=== PATIENT | male | born 1940 | race Caucasian/White ===

== ENCOUNTER 2020-12-02 21:08 | Inpatient (IN) | payer MEDICARE, OTHER ==
[2020-12-02] MEDS ORDERED: Sodium Chloride 0.9% 10 ML Syringe FLUSH PRN (21:20)
[2020-12-02] MEDS ORDERED: Sodium Chloride 0.9% 1,000 ML IV ONE (21:20)
--- NOTE | 2020-12-02 21:44 | EDM.PDOC ---
ED HPI GENERAL MEDICAL PROBLEM - General Chief Complaint: General Stated Complaint: [facility] Time Seen by Provider: 12/02/20 21:15 Source of Information: Reports: Patient, EMS History Limitations: Reports: Altered Mental Status - History of Present Illness INITIAL COMMENTS - FREE TEXT/NARRATIVE: The patient presents by [facility] for fever, generalized weakness and cough. This started yesterday. He also is confused. He could not get off of the toilet so his called 911. He has no temp now but he did take something for a fever. He has a slight cough. He feels short of breath and his oxygen saturations were in the 80s. He has no chest pain, abdominal pain, nausea or vomiting. He had a rapid heart rate when EMS arrived. He is at 109 now. He was given about a 350ml NS bolus. He did get the [employer] [place] COVID 19 immunization. He has no pain with urination. He is confused to place and time. He has a history of diabetes, DVT/PE, and hypertension. Onset: Gradual Duration: Day(s): (2) Severity: Moderate Improves with: Reports: None Worsens with: Reports: None Associated Symptoms: Reports: Cough, Fever/Chills. Denies: Chest Pain, Headaches, Nausea/Vomiting, Shortness of Breath Treatments [employer]: Reports: Isotonic Fluid, IV/IO, Oxygen, See EMS Report, Other (see below) Other Treatments [employer] SOFTWARE [employer]ER: does not recall what he took at home for fever; pt is on coumadin - Related Data Allergies Allergy/AdvReac Type Severity Reaction Status Date / Time No Known Allergies Allergy Verified 10/27/13 11:09 Home Meds: Home Meds Bicalutamide [Casodex] 50 mg PO DAILY 12/02/20 [History] Furosemide [Lasix] 20 mg PO DAILY PRN 12/02/20 [History] Metoprolol Tartrate 50 mg PO BID 12/02/20 [History] Omeprazole 20 mg PO DAILY 12/02/20 [History] Oxybutynin 5 mg PO BEDTIME 12/02/20 [History] Warfarin [Coumadin] 3 mg PO MOWEFR 12/02/20 [History] Warfarin [Coumadin] 4.5 mg PO SUTUTHSA 12/02/20 [History] metFORMIN HCl [Metformin HCl] 1,000 mg PO BID 12/02/20 [History] Past Medical History Cardiovascular History: Reports: Blood Clots/VTE/DVT, Heart Failure, Hypertension Gastrointestinal History: Reports: GERD Endocrine/Metabolic History: Reports: Diabetes, Type II Social & Family History - Tobacco Use Tobacco Use Status *Q: Former Tobacco User Used Tobacco, but Quit: Yes Month/Year Tobacco Last Used: 20 yrs - Caffeine Use Caffeine Use: Reports: Soda - Recreational Drug Use Recreational Drug Use: No ED ROS GENERAL - Review of Systems Review Of Systems: See Below Constitutional: Reports: Fever, Chills, Malaise, Weakness, Fatigue HEENT: Reports: No Symptoms Respiratory: Reports: Shortness of Breath, Cough Cardiovascular: Reports: No Symptoms Endocrine: Reports: No Symptoms GI/Abdominal: Reports: No Symptoms : Reports: No Symptoms Musculoskeletal: Reports: No Symptoms Skin: Reports: No Symptoms Neurological: Denies: Headache ED EXAM, GENERAL - Physical Exam Exam: See Below Exam Limited By: Altered Mental Status (slightly confused) General Appearance: Alert, No Apparent Distress Ears: Normal External Exam Nose: Normal Inspection Head: Atraumatic, Normocephalic Neck: Normal Inspection Respiratory/Chest: No Respiratory Distress, Decreased Breath Sounds Cardiovascular: No Edema, No Murmur, Tachycardia GI/Abdominal: Soft, Non-Tender, No Organomegaly, No Mass Back Exam: Normal Inspection Extremities: Normal Inspection Course - Vital Signs Last Recorded V/S: Last Vital Signs Temp 97.8 F 12/02/20 21:21 Pulse 116 H 12/02/20 21:21 Resp 34 H 12/02/20 21:21 BP 127/93 H 12/02/20 21:37 Pulse Ox 86 L 12/02/20 21:21 - Orders/Labs/Meds Orders: Active Orders 24 hr Category Date Time Status Blood Pressure Mgt: Sepsis [RC] Q15MX2 Care 12/02/20 21:21 Active Chest 1V Frontal [CR] Stat Exams 12/02/20 21:20 Taken Chest wo Cont [CT] Stat Exams 12/02/20 22:24 Stop Req CULTURE BLOOD [BC] Stat Lab 12/02/20 21:30 Received CULTURE BLOOD [BC] Stat Lab 12/02/20 21:39 Received REFLEX LACTIC ACID YES OR NO [CHEM] Routine Lab 12/02/20 22:30 Received Sodium Chloride 0.9% [Normal Saline] 1,000 ml Med 12/02/20 21:20 Active IV BOLUS Sodium Chloride 0.9% [Saline Flush] Med 12/02/20 21:20 Active 10 ml FLUSH ASDIRECTED PRN Blood Culture x2 Reflex Set [OM.PC] Stat Ot 12/02/20 21:21 Ordered Saline Lock Insert [OM.PC] Stat Ot 12/02/20 21:21 Ordered Severe Sepsis Onset Time [OM.PC] Stat Ot 12/02/20 22:39 Ordered Medication Orders Sodium Chloride (Normal Saline) 1,000 mls @ 125 mls/hr IV BOLUS ONE; Protocol Stop: 12/03/20 05:19 Last Admin: 12/02/20 21:31 Dose: 125 mls/hr Documented by: DINORAH Sodium Chloride (Sodium Chloride 0.9% 10 Ml Syringe) 10 ml FLUSH ASDIRECTED PRN PRN Reason: Keep Vein Open Last Admin: 12/02/20 21:33 Dose: 10 ml Documented by: LOUISE Labs: Laboratory Tests 12/02/20 12/02/20 12/02/20 Range/Units 21:12 21:39 21:39 WBC 11.40 H (4.23-9.07) K/mm3 RBC 4.74 (4.63-6.08) M/mm3 Hgb 13.0 L (13.7-17.5) gm/dl Hct 41.5 (40.1-51.0) % MCV 87.6 (79.0-92.2) fl MCH 27.4 (25.7-32.2) pg MCHC 31.3 L (32.2-35.5) g/dl RDW Std Deviation 42.8 (35.1-43.9) fL Plt Count 140 L (163-337) K/mm3 MPV 10.8 (9.4-12.3) fl Neutrophils % (Manual) 87 H (40-60) % Band Neutrophils % 5 (0-10) % Lymphocytes % (Manual) 7 L (20-40) % Atypical Lymphs % 0 % Monocytes % (Manual) 1 L (2-10) % Eosinophils % (Manual) 0 L (0.8-7.0) % Basophils % (Manual) 0 L (0.2-1.2) Platelet Estimate Adequate RBC Morph Comment Normal PT 30.3 H (9.7-12.0) SECONDS INR 2.89 Sodium (136-145) mEq/L Potassium (3.5-5.1) mEq/L Chloride (98-107) mEq/L Carbon Dioxide (21-32) mEq/L Anion Gap (5-15) BUN (7-18) mg/dL Creatinine (0.7-1.3) mg/dL Est Cr Clr Drug Dosing mL/min Estimated GFR (MDRD) (>60) mL/min BUN/Creatinine Ratio (14-18) Glucose (70-99) mg/dL Lactic Acid (0.4-2.0) mmol/L Calcium (8.5-10.1) mg/dL Total Bilirubin (0.2-1.0) mg/dL AST (15-37) U/L ALT (16-63) U/L Alkaline Phosphatase (46-116) U/L C-Reactive Protein (<1.0) mg/dL Total Protein (6.4-8.2) g/dl Albumin (3.4-5.0) g/dl Globulin gm/dL Albumin/Globulin Ratio (1-2) Urine Color (Yellow) Urine Appearance (Clear) Urine pH (5.0-8.0) Ur Specific [place] (1.005-1.030) Urine Protein (Negative) Urine Glucose (UA) (Negative) Urine Ketones (Negative) Urine Occult Blood (Negative) Urine Nitrite (Negative) Urine Bilirubin (Negative) Urine Urobilinogen (0.2-1.0) Ur Leukocyte Esterase (Negative) SARS-CoV-2 RNA (PHAN) Negative (NEGATIVE) 12/02/20 12/02/20 12/02/20 Range/Units 21:39 21:39 21:55 WBC (4.23-9.07) K/mm3 RBC (4.63-6.08) M/mm3 Hgb (13.7-17.5) gm/dl Hct (40.1-51.0) % MCV (79.0-92.2) fl MCH (25.7-32.2) pg MCHC (32.2-35.5) g/dl RDW Std Deviation (35.1-43.9) fL Plt Count (163-337) K/mm3 MPV (9.4-12.3) fl Neutrophils % (Manual) (40-60) % Band Neutrophils % (0-10) % Lymphocytes % (Manual) (20-40) % Atypical Lymphs % % Monocytes % (Manual) (2-10) % Eosinophils % (Manual) (0.8-7.0) % Basophils % (Manual) (0.2-1.2) Platelet Estimate RBC Morph Comment PT (9.7-12.0) SECONDS INR Sodium 138 (136-145) mEq/L Potassium 3.7 (3.5-5.1) mEq/L Chloride 100 (98-107) mEq/L Carbon Dioxide 27 (21-32) mEq/L Anion Gap 14.7 (5-15) BUN 13 (7-18) mg/dL Creatinine 1.2 (0.7-1.3) mg/dL Est Cr Clr Drug Dosing 49.85 mL/min Estimated GFR (MDRD) 58 (>60) mL/min BUN/Creatinine Ratio 10.8 L (14-18) Glucose 250 H (70-99) mg/dL Lactic Acid 2.2 H* (0.4-2.0) mmol/L Calcium 8.9 (8.5-10.1) mg/dL Total Bilirubin 1.7 H (0.2-1.0) mg/dL AST 103 H (15-37) U/L ALT 99 H (16-63) U/L Alkaline Phosphatase 201 H (46-116) U/L C-Reactive Protein 4.2 H* (<1.0) mg/dL Total Protein 7.1 (6.4-8.2) g/dl Albumin 3.5 (3.4-5.0) g/dl Globulin 3.6 gm/dL Albumin/Globulin Ratio 1.0 (1-2) Urine Color Yellow (Yellow) Urine Appearance Slt cloudy H (Clear) Urine pH 5.5 (5.0-8.0) Ur Specific [place] 1.025 (1.005-1.030) Urine Protein Negative (Negative) Urine Glucose (UA) Negative (Negative) Urine Ketones 3+ H (Negative) Urine Occult Blood Negative (Negative) Urine Nitrite Negative (Negative) Urine Bilirubin Negative (Negative) Urine Urobilinogen 0.2 (0.2-1.0) Ur Leukocyte Esterase Negative (Negative) SARS-CoV-2 RNA (PHAN) (NEGATIVE) Meds: Medications Generic Name Dose Route Start Last Admin Trade Name Vane PRN Reason Stop Dose Admin Sodium Chloride 1,000 mls @ 125 mls/hr 12/02/20 21:20 12/02/20 21:31 Normal Saline IV 12/03/20 05:19 125 mls/hr BOLUS ONE Administration Protocol Sodium Chloride 10 ml 12/02/20 21:20 12/02/20 21:33 Sodium Chloride 0.9% 10 Ml Syringe FLUSH 10 ml ASDIRECTED PRN Administration Keep Vein Open Discontinued Medications Generic Name Dose Route Start Last Admin Trade Name Freq PRN Reason Stop Dose Admin Ceftriaxone Sodium 2 gm/ 100 mls @ 200 mls/hr 12/02/20 22:14 12/02/20 22:35 Sodium Chloride IV 12/02/20 22:43 200 mls/hr ONETIME ONE Administration - Re-Assessments/Exams Free Text/Narrative Re-Assessment/Exam: 12/02/20 21:46 I ordered oxygen, IV NS at 125mL/hr, CXR, labs, blood cultures, lactic acid and COVID 19. 12/02/20 22:45 His CXR shows a RML infiltrate. I have ordered rocephin 2 grams IV. His WBC was elevated at 11.4. His Hgb was low at 13. His INR was elevated at 2.89 but he is on coumadin for DVT/PE. Lactic acid is elevated at 2.2. His glucose is elevated at 250. His total bili is elevated at 1.7. His AST is elevated at 103. His ALT is elevated at 99. His alk phos is elevated at 201. His CRP is elevated at 4.2. He has 2 SIRS criteria of the tachycardia and tachypnia. He has a RML infiltrate. He has sepsis. His lactic acid is greater then 2 so he is in severe sepsis. His BP is good and his lactic is not over 4 so he does not require a 30mL/kg fluid bolus. He is getting fluids and antibiotics. He is hypoxic and on oxygen. I feel he needs to be admitted. I called Dr Arce and he agreed to the admission. Departure - Departure Time of Disposition: 22:50 Disposition: Admitted As Inpatient 64 Condition: Serious Clinical Impression: Hypoxia Pneumonia Qualifiers: Pneumonia type: due to unspecified organism Laterality: right Lung location: middle lobe of lung Qualified Code(s): J18.9 - Pneumonia, unspecified organism Sepsis Qualifiers: Sepsis type: sepsis due to unspecified organism Sepsis acute organ dysfunction status: unspecified Qualified Code(s): A41.9 - Sepsis, unspecified organism - Discharge Information Referrals: Poli Johnson MD [Primary Care Provider] - Forms: ED Department Discharge Sepsis Event Note (ED) - Evaluation Sepsis Screening Result: No Definite Risk - Focused Exam Vital Signs: Vital Signs Temp Pulse Resp BP Pulse Ox 12/02/20 21:37 127/93 H 12/02/20 21:21 97.8 F 116 H 34 H 129/63 86 L - My Orders Last 24 Hours: My Active Orders 12/02/20 21:20 Chest 1V Frontal [CR] Stat Sodium Chloride 0.9% [Normal Saline] 1,000 ml IV BOLUS Sodium Chloride 0.9% [Saline Flush] 10 ml FLUSH ASDIRECTED PRN 12/02/20 21:21 Blood Pressure Mgt: Sepsis [RC] Q15MX2 Blood Culture x2 Reflex Set [OM.PC] Stat Saline Lock Insert [OM.PC] Stat 12/02/20 21:30 CULTURE BLOOD [BC] Stat 12/02/20 21:39 CULTURE BLOOD [BC] Stat 12/02/20 22:24 Chest wo Cont [CT] Stat 12/02/20 22:30 REFLEX LACTIC ACID YES OR NO [CHEM] Routine 12/02/20 22:39 Severe Sepsis Onset Time [OM.PC] Stat - Assessment/Plan Last 24 Hours: My Active Orders 12/02/20 21:20 Chest 1V Frontal [CR] Stat Sodium Chloride 0.9% [Normal Saline] 1,000 ml IV BOLUS Sodium Chloride 0.9% [Saline Flush] 10 ml FLUSH ASDIRECTED PRN 12/02/20 21:21 Blood Pressure Mgt: Sepsis [RC] Q15MX2 Blood Culture x2 Reflex Set [OM.PC] Stat Saline Lock Insert [OM.PC] Stat 12/02/20 21:30 CULTURE BLOOD [BC] Stat 12/02/20 21:39 CULTURE BLOOD [BC] Stat 12/02/20 22:24 Chest wo Cont [CT] Stat 12/02/20 22:30 REFLEX LACTIC ACID YES OR NO [CHEM] Routine 12/02/20 22:39 Severe Sepsis Onset Time [OM.PC] Stat
[2020-12-02] MEDS ORDERED: cefTRIAXone 2 GM in Sodium Chloride 0.9% 100 ML IV ONE (22:14)
[2020-12-03] MEDS ORDERED: Acetaminophen 325 MG Tab PO PRN (00:58)
[2020-12-03] MEDS ORDERED: Ondansetron 4 MG/2 ML SDV IVPUSH PRN (00:59)
[2020-12-03] MEDS: Sodium Chloride 0.9% 1,000 ML IV SCH ×2 (06:39→15:07)
--- NOTE | 2020-12-03 06:54 | PCM.HP.2 ---
H&P History of Present Illness - General Date of Service: 12/03/20 Admit Problem/Dx: Admission Diagnosis/Problem Admission Diagnosis/Problem Pneumonia,RLL Source of Information: Patient, Old Records History Limitations: Reports: No Limitations - History of Present Illness Initial Comments - Free Text/Narative: The patient is an 79-year-old gentleman who was brought to the emergency department via ambulance yesterday. The patient reports that he over the past couple of weeks have been severely fatigued and at one point prior to presentation the patient had been unable to get off the toilet. EMS brought the patient in to emergency department and there was some concern with regards to confusion. The patient says that he has had a cough over the past couple of weeks as well. Nonproductive of sputum. He has denied any fever or chills. Patient has had no chest pain. The patient says that he does not feel confused at this time. The patient has been taking medication for his diabetes which he reports is well controlled. He also is on anticoagulant due to atrial fibrillation. The patient was noted to have right lower lobe pneumonia in the emergency department along with likely sepsis diagnosis and was treated with fluids and antibiotics. Onset of Symptoms: Reports: Gradual Duration of Symptoms: Reports: Week(s): Location: Reports: Chest Quality: Reports: Ache Severity: Mild Improves with: Reports: Rest Worsens with: Reports: Breathing Associated Symptoms: Reports: Confusion (This has resolved), Cough. Denies: Fever/Chills, Headaches - Related Data Allergies/Adverse Reactions: Allergies Allergy/AdvReac Type Severity Reaction Status Date / Time No Known Allergies Allergy Verified 12/03/20 07:16 Home Medications: Home Meds Bicalutamide [Casodex] 50 mg PO DAILY 12/02/20 [History] Furosemide [Lasix] 20 mg PO DAILY PRN 12/02/20 [History] Metoprolol Tartrate 50 mg PO BID 12/02/20 [History] Omeprazole 20 mg PO DAILY 12/02/20 [History] Oxybutynin 5 mg PO BEDTIME 12/02/20 [History] Warfarin [Coumadin] 3 mg PO MOWEFR 12/02/20 [History] Warfarin [Coumadin] 4.5 mg PO SUTUTHSA 12/02/20 [History] metFORMIN HCl [Metformin HCl] 1,000 mg PO BID 12/02/20 [History] Past Medical History HEENT History: Reports: None Cardiovascular History: Reports: Afib, Blood Clots/VTE/DVT, Heart Failure, Hypertension Respiratory History: Reports: None Gastrointestinal History: Reports: GERD Genitourinary History: Reports: None Musculoskeletal History: Reports: Arthritis Neurological History: Reports: Concussion, Headaches, Chronic, Migraines, Seizure, Other (See Below) Other Neuro History: pot reports that he had a seizure twice doesn't know why and is not on medication Psychiatric History: Reports: None Endocrine/Metabolic History: Reports: Diabetes, Type II Hematologic History: Reports: None Oncologic (Cancer) History: Reports: Prostate Other Oncologic History: pt reports he had for some time now and is taking pills for it Dermatologic History: Reports: None - Infectious Disease History Infectious Disease History: Reports: Chicken Pox, Influenza, Measles - Past Surgical History HEENT Surgical History: Reports: Cataract Surgery, Other (See Below) Other HEENT Surgeries/Procedures: bilateral eyes Cardiovascular Surgical History: Reports: None Male Surgical History: Reports: None Neurological Surgical History: Reports: None Musculoskeletal Surgical History: Reports: None Oncologic Surgical History: Reports: None Social & Family History - Family History Family Medical History: No Pertinent Family History - Tobacco Use Tobacco Use Status *Q: Former Tobacco User Used Tobacco, but Quit: No Month/Year Tobacco Last Used: 20 yrs Second Hand Smoke Exposure: No - Caffeine Use Caffeine Use: Reports: Soda Other Caffeine Use: might have a diet pepsi once or twice a week - Recreational Drug Use Recreational Drug Use: No - Living Situation & Occupation Living situation: Reports: , with Spouse H&P Review of Systems - Review of Systems: Review Of Systems: See Below General: Reports: Malaise, Fatigue, Diaphoresis. Denies: Fever, Chills HEENT: Reports: No Symptoms Pulmonary: Reports: Shortness of Breath, Cough. Denies: Sputum Cardiovascular: Reports: No Symptoms Gastrointestinal: Reports: No Symptoms Genitourinary: Reports: No Symptoms Musculoskeletal: Reports: No Symptoms Skin: Reports: No Symptoms Psychiatric: Reports: No Symptoms Neurological: Reports: No Symptoms Hematologic/Lymphatic: Reports: No Symptoms Immunologic: Reports: No Symptoms Exam - Exam Exam: See Below - Vital Signs Vital Signs: Last Vital Signs Temp 36.8 C 12/03/20 04:17 Pulse 87 12/03/20 04:17 Resp 22 H 12/03/20 04:17 BP 106/71 12/03/20 04:17 Pulse Ox 91 L 12/03/20 06:36 Weight: 94.483 kg - Exam Quality Assessment: No: Supplemental Oxygen General: Alert, Oriented, Cooperative HEENT: Conjunctiva Clear, EACs Clear, Hearing Intact, Nares Patent, PERRLA. No: Mucosa Moist & [place] (Dry) Neck: Supple, Trachea Midline Lungs: Normal Respiratory Effort, Rales (Bibasilar) Cardiovascular: Regular Rate, Irregular Rhythm (A. fib) GI/Abdominal Exam: Normal Bowel Sounds, Soft, Non-Tender, No Distention (Male) Exam: Deferred Rectal (Males) Exam: Deferred Back Exam: Normal Inspection, Full Range of Motion Extremities: Normal Inspection, No Pedal Edema Skin: Warm, Dry, Intact Neurological: Cranial Nerves Intact Neuro Extensive - Mental Status: Alert, Oriented x3, Normal Mood/Affect Neuro Extensive - Motor, Sensory, Reflexes: CN II-XII Intact Psychiatric: Alert, Normal Affect, Normal Mood - Patient Data Lab Results Last 24 hrs: Laboratory Results - last 24 hr 12/02/20 12/02/20 12/02/20 Range/Units 21:12 21:39 21:39 WBC 11.40 H (4.23-9.07) K/mm3 RBC 4.74 (4.63-6.08) M/mm3 Hgb 13.0 L (13.7-17.5) gm/dl Hct 41.5 (40.1-51.0) % MCV 87.6 (79.0-92.2) fl MCH 27.4 (25.7-32.2) pg MCHC 31.3 L (32.2-35.5) g/dl RDW Std Deviation 42.8 (35.1-43.9) fL Plt Count 140 L (163-337) K/mm3 MPV 10.8 (9.4-12.3) fl Neutrophils % (Manual) 87 H (40-60) % Band Neutrophils % 5 (0-10) % Lymphocytes % (Manual) 7 L (20-40) % Atypical Lymphs % 0 % Monocytes % (Manual) 1 L (2-10) % Eosinophils % (Manual) 0 L (0.8-7.0) % Basophils % (Manual) 0 L (0.2-1.2) Platelet Estimate Adequate RBC Morph Comment Normal PT 30.3 H (9.7-12.0) SECONDS INR 2.89 Sodium (136-145) mEq/L Potassium (3.5-5.1) mEq/L Chloride (98-107) mEq/L Carbon Dioxide (21-32) mEq/L Anion Gap (5-15) BUN (7-18) mg/dL Creatinine (0.7-1.3) mg/dL Est Cr Clr Drug Dosing mL/min Estimated GFR (MDRD) (>60) mL/min BUN/Creatinine Ratio (14-18) Glucose (70-99) mg/dL Lactic Acid (0.4-2.0) mmol/L Calcium (8.5-10.1) mg/dL Total Bilirubin (0.2-1.0) mg/dL AST (15-37) U/L ALT (16-63) U/L Alkaline Phosphatase (46-116) U/L C-Reactive Protein (<1.0) mg/dL Total Protein (6.4-8.2) g/dl Albumin (3.4-5.0) g/dl Globulin gm/dL Albumin/Globulin Ratio (1-2) Urine Color (Yellow) Urine Appearance (Clear) Urine pH (5.0-8.0) Ur Specific [place] (1.005-1.030) Urine Protein (Negative) Urine Glucose (UA) (Negative) Urine Ketones (Negative) Urine Occult Blood (Negative) Urine Nitrite (Negative) Urine Bilirubin (Negative) Urine Urobilinogen (0.2-1.0) Ur Leukocyte Esterase (Negative) SARS-CoV-2 RNA (PHAN) Negative (NEGATIVE) 12/02/20 12/02/20 12/02/20 Range/Units 21:39 21:39 21:55 WBC (4.23-9.07) K/mm3 RBC (4.63-6.08) M/mm3 Hgb (13.7-17.5) gm/dl Hct (40.1-51.0) % MCV (79.0-92.2) fl MCH (25.7-32.2) pg MCHC (32.2-35.5) g/dl RDW Std Deviation (35.1-43.9) fL Plt Count (163-337) K/mm3 MPV (9.4-12.3) fl Neutrophils % (Manual) (40-60) % Band Neutrophils % (0-10) % Lymphocytes % (Manual) (20-40) % Atypical Lymphs % % Monocytes % (Manual) (2-10) % Eosinophils % (Manual) (0.8-7.0) % Basophils % (Manual) (0.2-1.2) Platelet Estimate RBC Morph Comment PT (9.7-12.0) SECONDS INR Sodium 138 (136-145) mEq/L Potassium 3.7 (3.5-5.1) mEq/L Chloride 100 (98-107) mEq/L Carbon Dioxide 27 (21-32) mEq/L Anion Gap 14.7 (5-15) BUN 13 (7-18) mg/dL Creatinine 1.2 (0.7-1.3) mg/dL Est Cr Clr Drug Dosing 49.85 mL/min Estimated GFR (MDRD) 58 (>60) mL/min BUN/Creatinine Ratio 10.8 L (14-18) Glucose 250 H (70-99) mg/dL Lactic Acid 2.2 H* (0.4-2.0) mmol/L Calcium 8.9 (8.5-10.1) mg/dL Total Bilirubin 1.7 H (0.2-1.0) mg/dL AST 103 H (15-37) U/L ALT 99 H (16-63) U/L Alkaline Phosphatase 201 H (46-116) U/L C-Reactive Protein 4.2 H* (<1.0) mg/dL Total Protein 7.1 (6.4-8.2) g/dl Albumin 3.5 (3.4-5.0) g/dl Globulin 3.6 gm/dL Albumin/Globulin Ratio 1.0 (1-2) Urine Color Yellow (Yellow) Urine Appearance Slt cloudy H (Clear) Urine pH 5.5 (5.0-8.0) Ur Specific [place] 1.025 (1.005-1.030) Urine Protein Negative (Negative) Urine Glucose (UA) Negative (Negative) Urine Ketones 3+ H (Negative) Urine Occult Blood Negative (Negative) Urine Nitrite Negative (Negative) Urine Bilirubin Negative (Negative) Urine Urobilinogen 0.2 (0.2-1.0) Ur Leukocyte Esterase Negative (Negative) SARS-CoV-2 RNA (PHAN) (NEGATIVE) 12/03/20 12/03/20 Range/Units 00:40 05:00 WBC (4.23-9.07) K/mm3 RBC (4.63-6.08) M/mm3 Hgb (13.7-17.5) gm/dl Hct (40.1-51.0) % MCV (79.0-92.2) fl MCH (25.7-32.2) pg MCHC (32.2-35.5) g/dl RDW Std Deviation (35.1-43.9) fL Plt Count (163-337) K/mm3 MPV (9.4-12.3) fl Neutrophils % (Manual) (40-60) % Band Neutrophils % (0-10) % Lymphocytes % (Manual) (20-40) % Atypical Lymphs % % Monocytes % (Manual) (2-10) % Eosinophils % (Manual) (0.8-7.0) % Basophils % (Manual) (0.2-1.2) Platelet Estimate RBC Morph Comment PT (9.7-12.0) SECONDS INR Sodium (136-145) mEq/L Potassium (3.5-5.1) mEq/L Chloride (98-107) mEq/L Carbon Dioxide (21-32) mEq/L Anion Gap (5-15) BUN (7-18) mg/dL Creatinine (0.7-1.3) mg/dL Est Cr Clr Drug Dosing mL/min Estimated GFR (MDRD) (>60) mL/min BUN/Creatinine Ratio (14-18) Glucose (70-99) mg/dL Lactic Acid 2.0 1.6 (0.4-2.0) mmol/L Calcium (8.5-10.1) mg/dL Total Bilirubin (0.2-1.0) mg/dL AST (15-37) U/L ALT (16-63) U/L Alkaline Phosphatase (46-116) U/L C-Reactive Protein (<1.0) mg/dL Total Protein (6.4-8.2) g/dl Albumin (3.4-5.0) g/dl Globulin gm/dL Albumin/Globulin Ratio (1-2) Urine Color (Yellow) Urine Appearance (Clear) Urine pH (5.0-8.0) Ur Specific [place] (1.005-1.030) Urine Protein (Negative) Urine Glucose (UA) (Negative) Urine Ketones (Negative) Urine Occult Blood (Negative) Urine Nitrite (Negative) Urine Bilirubin (Negative) Urine Urobilinogen (0.2-1.0) Ur Leukocyte Esterase (Negative) SARS-CoV-2 RNA (PHAN) (NEGATIVE) Result Diagrams: 12/02/20 21:39 12/02/20 21:39 Sepsis Event Note - Evaluation Sepsis Screening Result: No Definite Risk Current Stage of Sepsis: Sepsis Possible Source of Sepsis: Pulmonary - Focused Exam Sepsis Event Note Statement: Focused Sepsis Exam Completed Vital Signs: Vital Signs Temp Temp Pulse Pulse Resp BP BP 12/03/20 06:36 12/03/20 04:17 36.8 C 87 22 H 106/71 12/02/20 23:55 37.7 C 101 H 28 H 118/79 12/02/20 23:05 36.8 C 104 H 20 124/58 L 12/02/20 21:52 137/65 12/02/20 21:37 127/93 H 12/02/20 21:21 36.6 C 116 H 34 H 129/63 Pulse Ox Pulse Ox 12/03/20 06:36 91 L 12/03/20 04:17 94 L 12/02/20 23:55 94 L 12/02/20 23:05 93 L 12/02/20 21:52 12/02/20 21:37 12/02/20 21:21 86 L Heart Sounds: Irregular Capillary Refill, Detail: Less than/Equal to (</=) 2 Seconds Pulse Description: 2+ Normal Peripheral Pulse Location: Carotid Skin Exam (Focused Sepsis): Normal Turgor - Problem List (1) Sepsis SNOMED Code(s): 73959991 ICD Code: A41.9 - SEPSIS, UNSPECIFIED ORGANISM Status: Resolved Priority: High Current Visit: Yes Qualifiers: Sepsis type: sepsis due to unspecified organism Sepsis acute organ dysfunction status: without acute organ dysfunction Qualified Code(s): A41.9 - Sepsis, unspecified organism (2) Pneumonia SNOMED Code(s): 943988457 ICD Code: J18.9 - PNEUMONIA, UNSPECIFIED ORGANISM Status: Acute Priority: High Current Visit: Yes Qualifiers: Pneumonia type: due to unspecified organism Laterality: right Lung location: lower lobe of lung Qualified Code(s): J18.9 - Pneumonia, unspecified organism (3) Hypertension SNOMED Code(s): 02663196 ICD Code: I10 - ESSENTIAL (PRIMARY) HYPERTENSION Status: Chronic Priority: Medium Current Visit: Yes Qualifiers: Hypertension type: essential hypertension Qualified Code(s): I10 - Essential (primary) hypertension (4) Hypoxia SNOMED Code(s): 406126804 ICD Code: R09.02 - HYPOXEMIA Status: Resolved Priority: High Current Visit: Yes (5) Type 2 diabetes mellitus without complications SNOMED Code(s): 961627896 ICD Code: E11.9 - TYPE 2 DIABETES MELLITUS WITHOUT COMPLICATIONS Status: Chronic Priority: Medium Current Visit: Yes Qualifiers: Diabetes mellitus intermediate manager insulin use: without penitentiary use Qualified Code(s): E11.9 - Type 2 diabetes mellitus without complications Problem List Initiated/Reviewed/Updated: Yes Orders Last 24hrs: Active Orders 24 hr Category Date Time Status Patient Status [ADT] Routine ADT 12/02/20 23:00 Active Bedrest [RC] ASDIRECTED Care 12/03/20 01:01 Active Blood Pressure Mgt: Sepsis [RC] [id number] Care 12/02/20 21:21 Active Oxygen Therapy Adult [Oxygen Therapy] [RC] ASDIRECTED Care 12/03/20 01:00 Active [place] [employer] Diet [DIET] Diet 12/03/20 Breakfast Active Chest 1V Frontal [CR] Stat Exams 12/02/20 21:20 Taken Chest wo Cont [CT] Stat Exams 12/02/20 22:24 Stop Req CULTURE BLOOD [BC] Stat Lab 12/02/20 21:30 Received CULTURE BLOOD [BC] Stat Lab 12/02/20 21:39 Received Acetaminophen [TylenoL] Med 12/03/20 00:58 Active 975 mg PO Q4H PRN Ondansetron [Zofran] Med 12/03/20 00:59 Active 4 mg IVPUSH Q6H PRN Sodium Chloride 0.9% [Normal Saline] 1,000 ml Med 12/03/20 06:30 Active IV ASDIRECTED Sodium Chloride 0.9% [Saline Flush] Med 12/02/20 21:20 Active 10 ml FLUSH ASDIRECTED PRN cefTRIAXone [Rocephin] 2 gm Med 12/03/20 22:00 Active Sodium Chloride 0.9% [Normal Saline] 100 ml IV Q24H Blood Culture x2 Reflex Set [OM.PC] Stat Ot 12/02/20 21:21 Ordered Isolation [COMM] Routine Ot 12/03/20 00:47 Ordered Saline Lock Insert [OM.PC] Stat Ot 12/02/20 21:21 Ordered Severe Sepsis Onset Time [OM.PC] Stat Ot 12/02/20 22:39 Ordered Code Status [Resuscitation Status] Routine Resus Stat 12/03/20 01:02 Ordered Medication Orders Acetaminophen (Acetaminophen 325 Mg Tab) 975 mg PO Q4H PRN PRN Reason: Pain/Fever Ceftriaxone Sodium 2 gm/ (Sodium Chloride) 100 mls @ 200 mls/hr IV Q24H KISHA Sodium Chloride (Normal Saline) 1,000 mls @ 125 mls/hr IV ASDIRECTED KISHA Last Admin: 12/03/20 06:39 Dose: 125 mls/hr Documented by: PHILLY Ondansetron HCl (Ondansetron 4 Mg/2 Ml Sdv) 4 mg IVPUSH Q6H PRN PRN Reason: Nausea Sodium Chloride (Sodium Chloride 0.9% 10 Ml Syringe) 10 ml FLUSH ASDIRECTED PRN PRN Reason: Keep Vein Open Last Admin: 12/02/20 21:33 Dose: 10 ml Documented by: LOUISE Assessment/Plan Comment:: The patient is an 79-year-old gentleman who had been admitted to acute hospitalization secondary to pneumonia, sepsis and hypoxia. The patient's sepsis has resolved with fluids. He will also be kept on antibiotics Rocephin 2 g IV on a daily basis. The patient's antibiotics will be deescalated as necessary. He is also hypertensive and he has been restarted on his home medications. The patient is a diabetic and he has been placed on sliding scale insulin along with a carb constant diet. The patient's Metformin will be continued for him. The patient will not have DVT prophylaxis as he is currently on Coumadin with an INR of 2.89. Repeat INR studies have been ordered. Repeat laboratory studies have been ordered. The patient's lactic acid initially was 2.2 however this normalized to 1.6. Overall the patient is doing better now. He has expressed the desire to go home. The patient should be appropriate for oral antibiotics and likely discharge tomorrow. He has been encouraged to ambulate. - Mortality Measure Prognosis:: Good
[2020-12-03] MEDS ORDERED: Ondansetron 4 MG Tab.DIS PO PRN (06:56)
[2020-12-03] MEDS ORDERED: Docusate Sodium 100 MG Cap PO PRN (06:56)
[2020-12-03] MEDS ORDERED: oxyCODONE 5 MG Tab PO PRN (06:56)
[2020-12-03] MEDS ORDERED: Furosemide 20 MG Tab PO PRN (07:00)
--- NOTE | 2020-12-03 07:58 | CR ---
Chest: Portable view of the chest was obtained. Comparison: No previous chest imaging is available. Heart size and mediastinum are normal. Lungs are clear with no acute parenchymal change. No acute osseous abnormality is appreciated. Impression: 1. Nothing acute is appreciated on portable chest x-ray. Diagnostic code #1
--- NOTE | 2020-12-03 08:06 | CT ---
CT chest Technique: Multiple axial sections were obtained from above the lung apices inferiorly through the lung bases. Intravenous contrast was not utilized. Reconstructed coronal and sagittal images were obtained. Comparison: Prior chest x-ray performed earlier the same day (9:45 PM). Findings: Left lobe of the thyroid gland is enlarged and shows substernal extension compatible with goitrous enlargement. Thoracic aorta shows atherosclerotic change with no aneurysm. Small mediastinal lymph nodes are seen and believed to be within normal limits. No axillary adenopathy is appreciated. Mild coronary artery calcification seen. No pericardial thickening is seen. Small nodule is noted within each adrenal gland. On the right side this measures about 9 mm and on the left side this measures about 8 mm. These are most likely benign. Layering gallstones are seen within the gallbladder. Cyst is noted within the right kidney measuring approximately 2.5 cm. Lungs show no acute parenchymal change. No pleural effusions are noted. Bone window settings were reviewed which show previous lumbar spine surgery which is partially visualized. No acute osseous abnormality is appreciated. Impression: 1. Small nodule within each adrenal gland which are most likely incidental. 2. Enlarged left lobe of the thyroid gland compatible with goitrous enlargement. 3. Gallstones. 4. Coronary artery calcifications. 5. Other findings as noted above. Nothing acute is seen. Diagnostic code #2 I agree with preliminary report from [facility], finalized on 12/01/20, 4:53 AM CDT, code 1
[2020-12-03] MEDS: metFORMIN 500 MG Tab PO SCH ×2 (08:11→17:50)
[2020-12-03] MEDS: Insulin Regular, Human 100 Units/ML 3 ML Vial SUBCUT SCH ×2 (08:12→13:27)
[2020-12-03] MEDS ORDERED: BICALUTAMIDE 50 MG PO SCH (09:00)
[2020-12-03] MEDS ORDERED: Metoprolol Tartrate 50 MG Tab PO SCH (09:00)
[2020-12-03] MEDS ORDERED: Pantoprazole 40 MG Tab.CR PO SCH (09:00)
[2020-12-03] MEDS ORDERED: Warfarin 3 MG Tab PO SCH (18:00)
[2020-12-03] MEDS ORDERED: Oxybutynin 5 MG Tab PO SCH (21:00)
[2020-12-03] MEDS ORDERED: cefTRIAXone 2 GM in Sodium Chloride 0.9% 100 ML IV SCH (22:00)
--- NOTE | 2020-12-05 08:53 | PCM.DCSUM1 ---
Discharge Summary - Hospital Course Free Text/Narrative:: The patient had been admitted on 12/03/2020 out of concern for sepsis and pneumonia. Diagnosis: Stroke: No - Discharge Data Discharge Date: 12/03/20 Discharge Disposition: Against Medical Advice 07 Condition: Good - Referral to Home Health Primary Care Physician: Poli Johnson MD - Discharge Diagnosis/Problem(s) (1) Sepsis SNOMED Code(s): 60979793 ICD Code: A41.9 - SEPSIS, UNSPECIFIED ORGANISM Status: Resolved Priority: High Qualifiers: Sepsis type: sepsis due to unspecified organism Sepsis acute organ dysfunction status: without acute organ dysfunction Qualified Code(s): A41.9 - Sepsis, unspecified organism (2) Pneumonia SNOMED Code(s): 127607414 ICD Code: J18.9 - PNEUMONIA, UNSPECIFIED ORGANISM Status: Acute Priority: High Qualifiers: Pneumonia type: due to unspecified organism Laterality: right Lung location: lower lobe of lung Qualified Code(s): J18.9 - Pneumonia, unspecified organism (3) Hypertension SNOMED Code(s): 57365207 ICD Code: I10 - ESSENTIAL (PRIMARY) HYPERTENSION Status: Chronic Priority: Medium Qualifiers: Hypertension type: essential hypertension Qualified Code(s): I10 - Essential (primary) hypertension (4) Hypoxia SNOMED Code(s): 394369001 ICD Code: R09.02 - HYPOXEMIA Status: Resolved Priority: High (5) Type 2 diabetes mellitus without complications SNOMED Code(s): 937623767 ICD Code: E11.9 - TYPE 2 DIABETES MELLITUS WITHOUT COMPLICATIONS Status: Chronic Priority: Medium Qualifiers: Diabetes mellitus computer terminal operator insulin use: without retirement use Qualified Code(s): E11.9 - Type 2 diabetes mellitus without complications - Patient Summary/Data Hospital Course: The patient is an 79-year-old gentleman who was brought to the emergency department via ambulance yesterday. The patient reports that he over the past couple of weeks have been severely fatigued and at one point prior to presentation the patient had been unable to get off the toilet. I had a discussion with the patient with the nurse present regarding his prognosis as well as the necessity for continuing antibiotics for few more days. He also is on anticoagulant due to atrial fibrillation. The patient was noted to have right lower lobe pneumonia in the emergency department along with likely sepsis diagnosis and was treated with fluids and antibiotics. The patient had some IV antibiotics and said that he felt well enough to go home and he had signed out AGAINST MEDICAL ADVICE. - Discharge Plan *PRESCRIPTION DRUG MONITORING PROGRAM REVIEWED*: No *COPY OF PRESCRIPTION DRUG MONITORING REPORT IN PATIENT [place]AZ[place]: No Home Medications: Home Meds Bicalutamide [Casodex] 50 mg PO DAILY 12/02/20 [History] Furosemide [Lasix] 20 mg PO DAILY PRN 12/02/20 [History] Metoprolol Tartrate 50 mg PO BID 12/02/20 [History] Omeprazole 20 mg PO DAILY 12/02/20 [History] Oxybutynin 5 mg PO BEDTIME 12/02/20 [History] Warfarin [Coumadin] 3 mg PO MOWEFR 12/02/20 [History] Warfarin [Coumadin] 4.5 mg PO SUTUTHSA 12/02/20 [History] metFORMIN HCl [Metformin HCl] 1,000 mg PO BID 12/02/20 [History] Forms: ED Department Discharge Referrals: Poli Johnson MD [Primary Care Provider] - - Discharge Summary/Plan Comment DC Time >30 min.: Yes - General Info Date of Service: 12/03/20 Admission Dx/Problem (Free Text: Admission Diagnosis/Problem Admission Diagnosis/Problem Pneumonia,RLL Subjective Update: Left AMA - Patient Data Vitals - Most Recent: Last Vital Signs Temp 36.3 C 12/03/20 16:48 Pulse 72 12/03/20 16:48 Resp 18 12/03/20 16:48 BP 118/59 L 12/03/20 16:48 Pulse Ox 95 12/03/20 16:48 Weight - Most Recent: 94.483 kg VLAD Results - Last 24 hrs: Microbiology 12/02/20 21:30 Aerobic Blood Culture - Preliminary Blood - Venous - Lab Draw NO GROWTH AFTER 2 DAYS Anaerobic Blood Culture - Preliminary NO GROWTH AFTER 2 DAYS 12/02/20 21:39 Aerobic Blood Culture - Preliminary Blood - Venous NO GROWTH AFTER 2 DAYS Anaerobic Blood Culture - Preliminary NO GROWTH AFTER 2 DAYS Med Orders - Current: Current Medications Discontinued Medications Acetaminophen (Acetaminophen 325 Mg Tab) 975 mg PO Q4H PRN PRN Reason: Pain/Fever Docusate Sodium (Docusate Sodium 100 Mg Cap) 100 mg PO BID PRN PRN Reason: Constipation Last Admin: 12/03/20 08:10 Dose: 100 mg Documented by: Furosemide (Furosemide 20 Mg Tab) 20 mg PO DAILY PRN PRN Reason: Edema Last Admin: 12/03/20 08:11 Dose: 20 mg Documented by: Sodium Chloride (Normal Saline) 1,000 mls @ 125 mls/hr IV BOLUS ONE; Protocol Stop: 12/03/20 05:19 Last Admin: 12/02/20 21:31 Dose: 125 mls/hr Documented by: Ceftriaxone Sodium 2 gm/ (Sodium Chloride) 100 mls @ 200 mls/hr IV ONETIME ONE Stop: 12/02/20 22:43 Last Admin: 12/02/20 22:35 Dose: 200 mls/hr Documented by: Ceftriaxone Sodium 2 gm/ (Sodium Chloride) 100 mls @ 200 mls/hr IV Q24H [facility] Sodium Chloride (Normal Saline) 1,000 mls @ 125 mls/hr IV ASDIRECTED [facility] Last Admin: 12/03/20 15:07 Dose: 125 mls/hr Documented by: Insulin Human Regular (Insulin Regular, Human 100 Units/Ml 3 Ml Vial) [facility]; Protocol Last Admin: 12/03/20 13:27 Dose: 2 unit Documented by: Metformin HCl (Metformin 500 Mg Tab) 1,000 mg PO BIDMEALS [facility] Last Admin: 12/03/20 17:50 Dose: 1,000 mg Documented by: Metoprolol Tartrate (Metoprolol Tartrate 50 Mg Tab) 50 mg PO BID [facility] Last Admin: 12/03/20 08:10 Dose: 50 mg Documented by: Non-Formulary Medication (Bicalutamide) 50 mg PO DAILY [facility] Ondansetron HCl (Ondansetron 4 Mg/2 Ml Sdv) 4 mg IVPUSH Q6H PRN PRN Reason: Nausea Ondansetron HCl (Ondansetron 4 Mg Tab.Dis) 4 mg PO Q4H PRN PRN Reason: nausea, able to take PO Oxybutynin Chloride (Oxybutynin 5 Mg Tab) 5 mg PO BEDTIME [facility] Oxycodone HCl (Oxycodone 5 Mg Tab) 5 mg PO Q4H PRN PRN Reason: Pain (moderate 4-6) Pantoprazole Sodium (Pantoprazole 40 Mg Tab.Cr) 40 mg PO DAILY@0700 [facility] Last Admin: 12/03/20 08:10 Dose: 40 mg Documented by: Sodium Chloride (Sodium Chloride 0.9% 10 Ml Syringe) 10 ml FLUSH ASDIRECTED PRN PRN Reason: Keep Vein Open Last Admin: 12/02/20 21:33 Dose: 10 ml Documented by: Warfarin Sodium (Warfarin 3 Mg Tab) 3 mg PO MoWeFr@1800 [facility] Warfarin Sodium (Warfarin 3 Mg Tab) 4.5 mg PO SuTuThSa@1800 [facility] Last Admin: 12/03/20 17:51 Dose: Not Given Documented by: *Q Meaningful Use (DIS) - VTE *Q VTE Mechanical Contraindications *Q: At Risk for Falls VTE Pharmacological Contraindications *Q: High INR Value
[2020-12-05] MEDS ORDERED: Warfarin 3 MG Tab PO SCH (18:00)
== END 2020-12-03 18:25 | disposition left against medical advice (07) | DRG 871 ==
LOC: JD.ED 21:08 → JD.MS 23:00
PROVIDERS: ADMIT Internal Medicine; ATTEND Internal Medicine
DX: A41.9 Sepsis, unspecified organism (principal); J18.9 Pneumonia, unspecified organism; I48.91 Unspecified atrial fibrillation; R09.02 Hypoxemia; K21.9 Gastro-esophageal reflux disease without esophagitis; I11.0 Hypertensive heart disease with heart failure; M19.90 Unspecified osteoarthritis, unspecified site; I50.9 Heart failure, unspecified; E11.9 Type 2 diabetes mellitus without complications; Z98.49 Cataract extraction status, unspecified eye; Z86.718 Personal history of other venous thrombosis and embolism; Z87.891 Personal history of nicotine dependence; Z79.01 Long term (current) use of anticoagulants; Z79.84 Long term (current) use of oral hypoglycemic drugs; Z79.899 Other long term (current) drug therapy; Z20.822 Contact with and (suspected) exposure to COVID-19
CPT/HCPCS: 36415; 71045; 71250; 80053; 81003; 83605; 85007; 85027; 85610; 86140; 87040 ×2; 96365; 99285; J0696; J7030; U0002; 82947; 94761; 99222; A9270-GY; J1815-GY

== ENCOUNTER 2020-12-05 08:24 | Emergency (ER) | payer MEDICARE, OTHER ==
--- NOTE | 2020-12-05 09:07 | EDM.PDOC ---
ED HPI GENERAL MEDICAL PROBLEM - General Chief Complaint: Cardiovascular Problem Stated Complaint: IRREGULAR HEART BEAT Time Seen by Provider: 12/05/20 08:39 Source of Information: Reports: Patient, Family, Old Records History Limitations: Reports: No Limitations - History of Present Illness INITIAL COMMENTS - FREE TEXT/NARRATIVE: Patient presents with increasing work of breathing productive cough clear sputum, he just left the hospital AMA on Saturday, was admitted Saturday for pneumonia he was not given any antibiotics as an outpatient and just been feeling weak. Initially started about 2 weeks ago he got to the point where night he got so weak he could not hardly get up and then called the ambulance. Currently is denying any fevers or runny nose no sore throat no smell or taste problems. No lightheadedness or dizziness denies chest pain mainly just notes difficulty sleeping secondary to PND and orthopnea. He was up all night and had to sit in the recliner. He has been feeling generally more weak ended condition no focal neurologic deficits no vision loss slurred speech or focal weakness. Has noted little lower extremity swelling appetites been di minished some constipation no nausea vomiting or diarrhea however. - Related Data Allergies Allergy/AdvReac Type Severity Reaction Status Date / Time No Known Allergies Allergy Verified 12/05/20 08:38 Home Meds: Home Meds Bicalutamide [Casodex] 50 mg PO DAILY 12/02/20 [History] Furosemide [Lasix] 20 mg PO DAILY PRN 12/02/20 [History] Metoprolol Tartrate 50 mg PO BID 12/02/20 [History] Omeprazole 20 mg PO DAILY 12/02/20 [History] Oxybutynin 5 mg PO BEDTIME 12/02/20 [History] Warfarin [Coumadin] 3 mg PO MOWEFR 12/02/20 [History] Warfarin [Coumadin] 4.5 mg PO SUTUTHSA 12/02/20 [History] metFORMIN HCl [Metformin HCl] 1,000 mg PO BID 12/02/20 [History] Amoxicillin 500 mg PO TID #21 capsule 12/05/20 [Rx] Past Medical History HEENT History: Reports: None Cardiovascular History: Reports: Afib, Blood Clots/VTE/DVT, Heart Failure, Hypertension Respiratory History: Reports: None Gastrointestinal History: Reports: GERD Genitourinary History: Reports: None Musculoskeletal History: Reports: Arthritis Neurological History: Reports: Concussion, Headaches, Chronic, Migraines, Seizure, Other (See Below) Other Neuro History: pot reports that he had a seizure twice doesn't know why and is not on medication Psychiatric History: Reports: None Endocrine/Metabolic History: Reports: Diabetes, Type II Hematologic History: Reports: None Oncologic (Cancer) History: Reports: Prostate Other Oncologic History: pt reports he had for some time now and is taking pills for it Dermatologic History: Reports: None - Infectious Disease History Infectious Disease History: Reports: Chicken Pox, Influenza, Measles - Past Surgical History HEENT Surgical History: Reports: Cataract Surgery, Other (See Below) Other HEENT Surgeries/Procedures: bilateral eyes Cardiovascular Surgical History: Reports: None Male Surgical History: Reports: None Neurological Surgical History: Reports: None Musculoskeletal Surgical History: Reports: None Oncologic Surgical History: Reports: None Social & Family History - Family History Family Medical History: No Pertinent Family History - Tobacco Use Tobacco Use Status *Q: Former Tobacco User Used Tobacco, but Quit: Yes Month/Year Tobacco Last Used: 2004 - Caffeine Use Caffeine Use: Reports: Soda Other Caffeine Use: might have a diet pepsi once or twice a week - Recreational Drug Use Recreational Drug Use: No - Living Situation & Occupation Living situation: Reports: , with Spouse ED ROS GENERAL - Review of Systems Review Of Systems: See Below Constitutional: Denies: Chills, Diaphoresis HEENT: Denies: Rhinitis, Throat Pain, Throat Swelling Respiratory: Reports: Shortness of Breath, Cough, Sputum. Denies: Pleuritic Chest Pain, Hemoptysis Cardiovascular: Reports: Dyspnea on Exertion, Orthopnea, PND. Denies: Chest Pain, Lightheadedness, Syncope GI/Abdominal: Reports: Constipation. Denies: Abdominal Pain, Diarrhea, Nausea, Vomiting : Reports: Frequency. Denies: Dysuria, Hematuria Skin: Reports: No Symptoms Neurological: Reports: No Symptoms Psychiatric: Reports: No Symptoms ED EXAM, GENERAL - Physical Exam Exam: See Below Exam Limited By: No Limitations General Appearance: Alert, WD/WN, No Apparent Distress Throat/Mouth: Normal Oropharynx Head: Atraumatic Neck: Normal Inspection Respiratory/Chest: No Respiratory Distress, Decreased Breath Sounds. No: Rales, Rhonchi, Wheezing Cardiovascular: Normal Peripheral Pulses, Other (Irregular regular pulse, not tachycardic, does have some minimal lower ankle swelling) GI/Abdominal: Normal Bowel Sounds, Soft, Non-Tender Extremities: Normal Inspection Neurological: Alert, Oriented, CN II-XII Intact Psychiatric: Normal Affect #1 Interpretation EKG Date: 12/05/20 Time: 08:32 Rhythm: NSR Rate (Beats/Min): 82 EKG Interpretation Comments: I reviewed EKG showing sinus rhythm rate of 82 NC 147 QRS is 87 QT corrected 461 abnormal R wave progression PAC noted otherwise no acute ischemic changes are noted. Course - Vital Signs Text/Narrative:: We will need to review old records sounds like pneumonia this not getting better rule out CHF acute coronary syndrome blood sugar abnormality electrolyte abnormality anemia or other etiology of the weakness but suspect his initial problem is pneumonia. Last Recorded V/S: Last Vital Signs Temp 97.5 F 12/05/20 08:33 Pulse 76 12/05/20 08:33 Resp 20 12/05/20 08:33 BP 118/74 12/05/20 08:33 Pulse Ox 93 L 12/05/20 08:33 - Orders/Labs/Meds Orders: Active Orders 24 hr Category Date Time Status PRO B-TYPE NATRIUR PEPT,BNPPRO [CHEM] Stat Lab 12/05/20 08:35 Received PROCALCITONIN [REF] Stat Lab 12/05/20 08:35 Received UA RFX VLAD AND CULT IF INDIC [URIN] Stat Lab 12/05/20 09:08 Ordered Labs: Laboratory Tests 12/05/20 12/05/20 12/05/20 Range/Units 08:35 08:35 08:35 WBC 9.05 (4.23-9.07) K/mm3 RBC 4.77 (4.63-6.08) M/mm3 Hgb 13.2 L (13.7-17.5) gm/dl Hct 41.4 (40.1-51.0) % MCV 86.8 (79.0-92.2) fl MCH 27.7 (25.7-32.2) pg MCHC 31.9 L (32.2-35.5) g/dl RDW Std Deviation 43.7 (35.1-43.9) fL Plt Count 198 (163-337) K/mm3 MPV 11.3 (9.4-12.3) fl Neut % (Auto) 77.5 H (34.0-67.9) % Lymph % (Auto) 11.7 L (21.8-53.1) % Williams % (Auto) 9.0 (5.3-12.2) % Eos % (Auto) 0.9 (0.8-7.0) Baso % (Auto) 0.2 (0.1-1.2) % Neut # (Auto) 7.02 H (1.78-5.38) K/mm3 Lymph # (Auto) 1.06 L (1.32-3.57) K/mm3 Williams # (Auto) 0.81 (0.30-0.82) K/mm3 Eos # (Auto) 0.08 (0.04-0.54) K/mm3 Baso # (Auto) 0.02 (0.01-0.08) K/mm3 PT 33.5 H (9.7-12.0) SECONDS INR 3.20 Sodium 136 (136-145) mEq/L Potassium 3.9 (3.5-5.1) mEq/L Chloride 98 (98-107) mEq/L Carbon Dioxide 29 (21-32) mEq/L Anion Gap 12.9 (5-15) BUN 11 (7-18) mg/dL Creatinine 1.0 (0.7-1.3) mg/dL Est Cr Clr Drug Dosing 59.82 mL/min Estimated GFR (MDRD) > 60 (>60) mL/min BUN/Creatinine Ratio 11.0 L (14-18) Glucose 210 H (70-99) mg/dL Lactic Acid (0.4-2.0) mmol/L Calcium 9.6 (8.5-10.1) mg/dL Total Bilirubin 1.6 H (0.2-1.0) mg/dL AST 60 H (15-37) U/L ALT 140 H (16-63) U/L Alkaline Phosphatase 193 H (46-116) U/L Troponin I < 0.017 (0.00-0.056) ng/mL C-Reactive Protein 7.9 H* (<1.0) mg/dL Total Protein 7.2 (6.4-8.2) g/dl Albumin 3.3 L (3.4-5.0) g/dl Globulin 3.9 gm/dL Albumin/Globulin Ratio 0.9 L (1-2) 05/24/21 Range/Units 09:18 WBC (4.23-9.07) K/mm3 RBC (4.63-6.08) M/mm3 Hgb (13.7-17.5) gm/dl Hct (40.1-51.0) % MCV (79.0-92.2) fl MCH (25.7-32.2) pg MCHC (32.2-35.5) g/dl RDW Std Deviation (35.1-43.9) fL Plt Count (163-337) K/mm3 MPV (9.4-12.3) fl Neut % (Auto) (34.0-67.9) % Lymph % (Auto) (21.8-53.1) % Williams % (Auto) (5.3-12.2) % Eos % (Auto) (0.8-7.0) Baso % (Auto) (0.1-1.2) % Neut # (Auto) (1.78-5.38) K/mm3 Lymph # (Auto) (1.32-3.57) K/mm3 Williams # (Auto) (0.30-0.82) K/mm3 Eos # (Auto) (0.04-0.54) K/mm3 Baso # (Auto) (0.01-0.08) K/mm3 PT (9.7-12.0) SECONDS INR Sodium (136-145) mEq/L Potassium (3.5-5.1) mEq/L Chloride (98-107) mEq/L Carbon Dioxide (21-32) mEq/L Anion Gap (5-15) BUN (7-18) mg/dL Creatinine (0.7-1.3) mg/dL Est Cr Clr Drug Dosing mL/min Estimated GFR (MDRD) (>60) mL/min BUN/Creatinine Ratio (14-18) Glucose (70-99) mg/dL Lactic Acid 1.5 (0.4-2.0) mmol/L Calcium (8.5-10.1) mg/dL Total Bilirubin (0.2-1.0) mg/dL AST (15-37) U/L ALT (16-63) U/L Alkaline Phosphatase (46-116) U/L Troponin I (0.00-0.056) ng/mL C-Reactive Protein (<1.0) mg/dL Total Protein (6.4-8.2) g/dl Albumin (3.4-5.0) g/dl Globulin gm/dL Albumin/Globulin Ratio (1-2) Blood cell counts 9000 hemoglobin 13.2 hematocrit 41.4 platelet count is 198,000 INR 3.2 sodium 136 patient 3.9 chloride third 98 CO2 is 29 BUN 11 creatinine 1.0 blood sugars 210 calcium 9.6 bilirubin 1.6 AST 60 ALT 140 alkaline phos 193 bone is negative C-reactive protein 7.9 - Radiology Interpretation Free Text/Narrative:: Portable chest x-ray read out as heart size mediastinum within normal limits slight mass-effect on the trachea compatible with a substernal thyroid enlargement left side otherwise lungs are clear no parenchymal change otherwise no acute findings. - Re-Assessments/Exams Free Text/Narrative Re-Assessment/Exam: 12/05/20 10:29 Still waiting for the procalcitonin and the BNP however chest x-ray looks good he does not seem to be fluid overloaded will finish out a course for community- acquired pneumonia with amoxicillin 500 mg 3 times a day for 7 more days follow- up with his primary care tomorrow may try Tylenol PM for sleep otherwise return precautions given. Departure - Departure Time of Disposition: 10:30 Disposition: Home, Self-Care 01 Condition: Good Clinical Impression: Pneumonia Qualifiers: Pneumonia type: due to unspecified organism Laterality: right Lung location: lower lobe of lung Qualified Code(s): J18.9 - Pneumonia, unspecified organism Instructions: Shortness of Breath, Adult, [id number], Community-Acquired Pneumonia, Adult, [id number] Referrals: Poli Johnson MD [Primary Care Provider] - Forms: ED Department Discharge Additional Instructions: Amoxicillin 500 mg 3 times a day for 7 more days, follow-up with your primary care provider tomorrow may try Tylenol PM but take no more than 1 or 2 at bedtime for sleep. Return to the emergency room however increasing work of breathing, shortness of breath, fevers, chest pain, weakness or worsening. Sepsis Event Note (ED) - Evaluation Sepsis Screening Result: No Definite Risk - Focused Exam Vital Signs: Vital Signs Temp Pulse Resp BP Pulse Ox 12/05/20 08:33 97.5 F 76 20 118/74 93 L - My Orders Last 24 Hours: My Active Orders 12/05/20 08:35 PRO B-TYPE NATRIUR PEPT,BNPPRO [CHEM] Stat PROCALCITONIN [REF] Stat 12/05/20 09:08 UA RFX VLAD AND CULT IF INDIC [URIN] Stat - Assessment/Plan Last 24 Hours: My Active Orders 12/05/20 08:35 PRO B-TYPE NATRIUR PEPT,BNPPRO [CHEM] Stat PROCALCITONIN [REF] Stat 12/05/20 09:08 UA RFX VLAD AND CULT IF INDIC [URIN] Stat
--- NOTE | 2020-12-05 09:54 | CR ---
Chest: Portable view of the chest was obtained. Comparison: Prior chest CT of 12/03/20 and chest x-ray performed on 12/02/20. Heart size and mediastinum are within normal limits. Slight mass-effect upon the trachea is seen compatible with substernal thyroid enlargement on the left side. Lungs are clear with no acute parenchymal change. Bony structure shows nothing acute. Impression: 1. Findings as noted above. 2. Nothing acute is appreciated on portable chest x-ray. Diagnostic code #2
== END 2020-12-05 11:22 | disposition home or self-care (01) ==
LOC: JD.ED 08:24
DX: J18.9 Pneumonia, unspecified organism (principal); I48.91 Unspecified atrial fibrillation; I11.0 Hypertensive heart disease with heart failure; I50.9 Heart failure, unspecified; K21.9 Gastro-esophageal reflux disease without esophagitis; E11.9 Type 2 diabetes mellitus without complications; Z79.84 Long term (current) use of oral hypoglycemic drugs; Z79.899 Other long term (current) drug therapy; Z79.01 Long term (current) use of anticoagulants; Z86.718 Personal history of other venous thrombosis and embolism; Z87.891 Personal history of nicotine dependence
CPT/HCPCS: 36415; 71045; 71045-26; 80053; 83605; 83880; 84145; 84484; 85025; 85610; 86140; 93005; 93010; 99283; 99285-25

== ENCOUNTER 2023-09-30 14:31 | Emergency (ER) | payer MEDICARE, OTHER ==
[2023-09-30 14:56] LABS: BASOPHILS ABSOLUTE AUTO 0.1 K/mm3 (0.0-0.2); BASOPHILS PERCENT AUTO 0.5 % (0.0-1.0); EOSINOPHILS ABSOLUTE AUTO 0.2 K/mm3 (0.0-0.4); EOSINOPHILS PERCENT AUTO 1.9 % (0.0-6.0); HEMATOCRIT 43.3 % (42.0-52.0); HEMOGLOBIN 14.4 gm/dl (14.0-18.0); IMMATURE GRAN ABSOLUTE AUTO 0.02 K/mm3 (0.00-0.05); IMMATURE GRAN PERCENT AUTO 0.2 % (0.0-0.4); LYMPHOCYTES ABSOLUTE AUTO 1.4 K/mm3 (1.0-4.8); LYMPHOCYTES PERCENT AUTO 14.7 % (24.0-44.0); MEAN CORPUSCULAR HEMOGLOBIN 30.1 pg (28.0-32.0); MEAN CORPUSCULAR HGB CONC 33.3 g/dl (32.0-36.0); MEAN CORPUSCULAR VOLUME 90.4 fl (83.0-99.0); MEAN PLATELET VOLUME 9.8 fl (9.4-12.4); MONOCYTES ABSOLUTE AUTO 0.7 K/mm3 (0.0-0.8); MONOCYTES PERCENT AUTO 7.8 % (0.0-8.0); NEUTROPHILS ABSOLUTE AUTO 7.1 K/mm3 (1.8-7.7); NEUTROPHILS PERCENT AUTO 74.9 % (41.0-71.0); PLATELET COUNT,PLT 160 K/mm3 (150-400); RED BLOOD CELL COUNT 4.79 M/mm3 (4.52-5.90); WHITE BLOOD CELL COUNT,WBC 9.47 K/mm3 (3.9-11.3)
[2023-09-30 15:15] LABS: INR 1.77; PROTHROMBIN TIME 18.2 SECONDS (9.7-12.0)
[2023-09-30 15:27] LABS: A/G RATIO 0.9 (1-2); ALBUMIN 3.4 g/dl (3.4-5.0); ANION GAP 13.9 (5-15); BILIRUBIN TOTAL 0.8 mg/dL (0.2-1.0); BUN/CREATININE RATIO 12.2 (14-18); CALCIUM 9.2 mg/dL (8.5-10.1); CREATININE 0.9 mg/dL (0.7-1.3); EST CRCL DRUG DOSING (CG) 63.09 mL/min; MAGNESIUM 1.6 mg/dL (1.8-2.4); POTASSIUM,K 3.9 mEq/L (3.5-5.1); PROTEIN TOTAL,TP 7.1 g/dl (6.4-8.2)
== END 2023-09-30 16:20 | disposition home or self-care (01) ==
LOC: JD.ED 14:31
DX: S83.91XA Sprain of unspecified site of right knee, initial encounter (principal); S00.83XA Contusion of other part of head, initial encounter; I11.0 Hypertensive heart disease with heart failure; I50.9 Heart failure, unspecified; K21.9 Gastro-esophageal reflux disease without esophagitis; I48.91 Unspecified atrial fibrillation; E11.9 Type 2 diabetes mellitus without complications; Z79.01 Long term (current) use of anticoagulants; Z79.899 Other long term (current) drug therapy; Z79.84 Long term (current) use of oral hypoglycemic drugs; W01.0XXA Fall on same level from slipping, tripping and stumbling without subsequent striking against object, initial encounter; Y92.009 Unspecified place in unspecified non-institutional (private) residence as the place of occurrence of the external cause; Y93.89 Activity, other specified
CPT/HCPCS: 36415; 70450; 70450-26; 72125; 72125-26; 73562-26-RT; 73562-RT; 80053; 83735; 83880; 85025; 85610; 93005; 93010; 99282; 99284